=== PATIENT | male | born 1990 | race Hispanic/Latino ===

== ENCOUNTER 2017-02-05 02:46 | Emergency (ER) | payer SELFPAY ==
[~2017-02-05] VITALS: Ht 162.6 cm; Wt 85.0 kg
[~2017-02-05 02:46] MED LIST: CEPHALEXIN500 MG PO; NO HOME MEDS; ONDANSETRON4 MG PO; TORADOL OR; TYLENOL # 31 TA1 PO; ULTRAM50 M1 PO
[2017-02-05 03:32] LABS: HEMATOCRIT 43.6 % (39.0-50.0); HEMOGLOBIN 15.4 g/dl (14.0-18.0); IMMATURE GRANULOCYTES 0.5 % (0.0-1.0); MEAN CORPUSCULAR HGB 30.7 pG CALC (26.0-32.0); MEAN CORPUSCULAR HGB CONC 35.3 g/L CALC (32.0-36.0); NEUT# 3.67 thou/uL (1.82-7.42); RED BLOOD COUNT 5.01 mill/uL (4.70-6.10); RED CELL DISTRI WIDTH 12.7 % (11.5-15.5); URINE BLOOD DIPSTICK NEGATIVE (NEGATIVE); URINE CLARITY CLEAR; URINE COLOR YELLOW; URINE GLUCOSE - DIPSTICK NEGATIVE (NEGATIVE); URINE KETONE NEGATIVE (NEGATIVE); URINE LEUK ESTERASE NEGATIVE (NEGATIVE); URINE NITRITE - DIPSTICK NEGATIVE (Negative); URINE PROTEIN - DIPSTICK NEGATIVE (NEG-TRACE); URINE SPECIFIC GRAVITY >=1.030; URINE UROBILINOGEN - DIPSTICK 0.2 E.U./dL (0.2)
[2017-02-05 03:35] LABS: URINE BILIRUBIN - DIPSTICK NEGATIVE (NEGATIVE)
[2017-02-05 03:51] LABS: ALBUMIN 5.4 g/dL (3.2-5.0); ALKALINE PHOSPHATASE 109 u/l (38-126); AMYLASE 66 u/l (30-110); ANION GAP 20 (6-22 (CALC)); BILIRUBIN, TOTAL 0.7 mg/dL (0.0-1.4); BUN 15 mg/dL (9-20); BUN/CREATININE RATIO 20 (12-20 (CALC)); CARBON DIOXIDE 26 mmol/l (22-30); CHLORIDE 101 mmol/l (95-108); CREATININE 0.8 mg/dL (0.7-1.3); GFR > 60 ML/MIN (>=60 (CALC)); GFR FOR AFR.AMER. > 60 ML/MIN (>=60 (CALC)); GLUCOSE 103 mg/dL (75-110); LIPASE 460 u/l (23-300); SGOT/AST 80 u/l (17-59); SGPT/ALT 172 u/l (21-72); SODIUM 143 mmol/l (137-146); TOTAL PROTEIN 8.4 g/dL (6.3-8.2)
[2017-02-05] MEDS ORDERED: PRILOSEC20 MG PO (04:36)
[2017-02-05 04:45] VITALS: BP 132/77
== END 2017-02-05 04:48 | disposition home or self-care (01) | DRG 392 ==
LOC: ED 02:46
PROVIDERS: Emergency Medicine
DX: R10.9 Unspecified abdominal pain (principal)
CPT/HCPCS: S0164

== ENCOUNTER 2020-02-07 16:45 | Emergency (ER) | payer SELFPAY ==
[~2020-02-07 16:45] MED LIST changes: +PRILOSEC20 MG PO
[2020-02-07 17:57] LABS: HEMATOCRIT 39.6 % (39.0-50.0); HEMOGLOBIN 13.7 g/dl (14.0-18.0); IMMATURE GRANULOCYTES 0.5 % (0.0-5.0); MEAN CELL VOLUME 87.6 fL CALC (80.0-100.0); MEAN CORPUSCULAR HGB 30.3 pG CALC (26.0-32.0); MEAN CORPUSCULAR HGB CONC 34.6 g/dL CAL (32.0-36.0); NEUT# 2.63 thou/uL (1.82-7.42); RED BLOOD COUNT 4.52 mill/uL (4.70-6.10); RED CELL DISTRI WIDTH 12.9 % (11.5-15.5)
[2020-02-07 18:13] LABS: ALBUMIN 4.6 g/dL (3.2-5.0); ALKALINE PHOSPHATASE 117 u/l (38-126); ANION GAP 16 (6-22 (CALC)); BILIRUBIN, TOTAL 0.5 mg/dL (0.0-1.4); BUN 13 mg/dL (9-20); BUN/CREATININE RATIO 15 (12-20 (CALC)); CARBON DIOXIDE 25 mmol/l (22-30); CHLORIDE 103 mmol/l (95-108); CREATININE 0.9 mg/dL (0.7-1.3); GFR > 60 ML/MIN (>=60 (CALC)); GFR FOR AFR.AMER. > 60 ML/MIN (>=60 (CALC)); POTASSIUM 3.6 mmol/l (3.5-5.1); SODIUM 140 mmol/l (137-146); TOTAL PROTEIN 8.1 g/dL (6.3-8.2)
[2020-02-07 18:27] LABS: SGOT/AST 155 u/l (17-59)
[2020-02-08 03:02] VITALS: BP 140/72
--- NOTE | 2020-02-09 08:55 | NUR ---
SPOKE WITH PT REGARDING PRELIM BLOOD CX RESULTS, PT REPORTS NO FEVER OR CHILLS, FEELS MUCH BETTER. ADVISED TO FOLLOW UP WITH PCP OR RETURN TO ED FOR EVALUATION IF HE SPIKES A FEVER. VERBALIZED UNDERSTANDING
== END 2020-02-07 21:43 | disposition home or self-care (01) | DRG 179 ==
LOC: ED 16:45
PROVIDERS: Student in an Organized Health Care Education/Training Program
DX: U07.1 COVID-19 (principal)
CPT/HCPCS: Q9967

== ENCOUNTER 2020-02-10 11:26 | Emergency (ER) | payer SELFPAY ==
[2020-02-10 12:46] LABS: HEMATOCRIT 40.7 % (39.0-50.0); HEMOGLOBIN 13.8 g/dl (14.0-18.0); IMMATURE GRANULOCYTES 1.1 % (0.0-5.0); MEAN CELL VOLUME 86.8 fL CALC (80.0-100.0); MEAN CORPUSCULAR HGB 29.4 pG CALC (26.0-32.0); MEAN CORPUSCULAR HGB CONC 33.9 g/dL CAL (32.0-36.0); NEUT# 2.8 thou/uL (1.82-7.42); RED BLOOD COUNT 4.69 mill/uL (4.70-6.10); RED CELL DISTRI WIDTH 12.7 % (11.5-15.5)
[2020-02-10 12:46] LABS: URINE BILIRUBIN - DIPSTICK NEGATIVE (NEGATIVE); URINE BLOOD DIPSTICK NEGATIVE (NEGATIVE); URINE COLOR YELLOW; URINE GLUCOSE - DIPSTICK NEGATIVE (NEGATIVE); URINE KETONE TRACE mg/dL (NEGATIVE); URINE LEUK ESTERASE NEGATIVE (NEGATIVE); URINE NITRITE - DIPSTICK NEGATIVE (Negative); URINE PROTEIN - DIPSTICK NEGATIVE (NEG-TRACE); URINE SPECIFIC GRAVITY >=1.030
[2020-02-10 12:59] LABS: ALBUMIN 4.7 g/dL (3.2-5.0); ALKALINE PHOSPHATASE 125 u/l (38-126); ANION GAP 13 (6-22 (CALC)); BILIRUBIN, TOTAL 0.7 mg/dL (0.0-1.4); BUN 13 mg/dL (9-20); BUN/CREATININE RATIO 22 (12-20 (CALC)); CARBON DIOXIDE 26 mmol/l (22-30); CHLORIDE 105 mmol/l (95-108); CREATININE 0.6 mg/dL (0.7-1.3); GFR > 60 ML/MIN (>=60 (CALC)); GFR FOR AFR.AMER. > 60 ML/MIN (>=60 (CALC)); LIPASE 232 u/l (23-300); SGOT/AST 156 u/l (17-59); SODIUM 140 mmol/l (137-146); TOTAL PROTEIN 8.4 g/dL (6.3-8.2)
[2020-02-10] MEDS ORDERED: ZPAK PO (15:03)
[2020-02-10] MEDS ORDERED: ONDANSETRON4 MG PO (15:03)
[2020-02-10] MEDS ORDERED: AMOXICILLIN/CL875 MG PO (15:03)
[2020-02-10 17:50] VITALS: BP 125/72
== END 2020-02-10 17:58 | disposition home or self-care (01) | DRG 179 ==
LOC: ED 11:26
PROVIDERS: Family Medicine
DX: U07.1 COVID-19 (principal); R10.84 Generalized abdominal pain; R11.0 Nausea

== ENCOUNTER 2024-04-05 21:51 | Emergency (ER) | payer SELFPAY ==
[2024-04-05] VITALS (7 sets, daily range): BP systolic 131–158; BP diastolic 71–115
[~2024-04-05] VITALS: Ht 162.6 cm; Wt 104.0 kg
[~2024-04-05 21:51] MED LIST changes: +AMOXICILLIN/CL875 MG PO; +METHOCARBAMOL500 MG PO; +PREDNISONE20 MG PO; +ZPAK PO
[2024-04-05] MEDS ORDERED: FAMOTIDINE 10MG/ML 2ML SDV IV STA (21:59)
[2024-04-05] MEDS ORDERED: SODIUM CHLORIDE 0.9% 1,000 ML IV STA (21:59)
[2024-04-05] MEDS ORDERED: methylPREDNISolone SODIUM SUCC 125 MG/2 ML SDV IV STA (21:59)
[2024-04-05] MEDS ORDERED: DiphenhydrAMINE HCL 50 MG/ML SDV IV STA (21:59)
[2024-04-05] MEDS ORDERED: PREDNISONE50 MG PO (23:04)
[2024-04-05] MEDS ORDERED: predniSONE 20 MG/TAB PO ONE (23:05)
== END 2024-04-05 23:14 | disposition home or self-care (01) | DRG 923 ==
LOC: ED 21:51
DX: T78.1XXA Other adverse food reactions, not elsewhere classified, initial encounter (principal); R06.02 Shortness of breath; J39.2 Other diseases of pharynx; X58.XXXA Exposure to other specified factors, initial encounter

== ENCOUNTER 2024-09-08 19:53 | Emergency (ER) | payer SELFPAY ==
[~2024-09-08] VITALS: Ht 162.6 cm; Wt 80.0 kg
[~2024-09-08 19:53] MED LIST changes: +PREDNISONE50 MG PO
[2024-09-08 20:03] VITALS: BP 140/84
[2024-09-08] MEDS ORDERED: ZPAK PO (20:06)
[2024-09-08 20:15] VITALS: BP 131/74
[2024-09-08 20:30] VITALS: BP 127/75
[2024-09-08 20:45] VITALS: BP 127/75
== END 2024-09-08 20:45 | disposition home or self-care (01) | DRG 153 ==
LOC: ED 19:53
DX: H66.92 Otitis media, unspecified, left ear (principal); J06.9 Acute upper respiratory infection, unspecified; J40 Bronchitis, not specified as acute or chronic